=== PATIENT | male | born 1990 | race Caucasian/White ===

== ENCOUNTER 2020-07-09 09:54 | Emergency (ER) | payer MEDICAID, SELFPAY ==
--- NOTE | ~2020-07-09 | US_ITS ---
EXAMINATION: US SCROTUM CLINICAL INFORMATION: Right testicular pain. Question torsion. COMPARISON: 12/01/2019 TECHNIQUE: A sonogram of the scrotum was performed assessing bauer-scale appearance and color Doppler flow. Spectral Doppler analysis of the arterial and venous flow were performed in the testes bilaterally. FINDINGS: RIGHT: Right testicle measures 3.7 x 1.7 x 2.5 cm, volume 8.4 mL. No focal testicular parenchymal lesions are visualized. Spectral Doppler analysis of the arterial and venous flow is normal in the right testis. Stable small focus of calcification. Right epididymal head is normal in size. Epididymal tail is not visualized. No right hydrocele or varicocele is seen. Right epididymal Doppler flow is normal. Redemonstrated are epididymal head cysts. LEFT: Left testicle measures 3.0 x 2.1 x 2.3 cm, volume 7.2 mL. Redemonstrated is curvilinear hypoechogenicity in the superior and mid portion of the medial aspect of the testicular parenchyma. Subtle foci of internal hyperechogenicity. Similar findings are noted in the prior study. This is of uncertain etiology. Small calcific focus in the left testes. Spectral Doppler analysis of the arterial and venous flow is normal in the left testis. Left epididymal head is normal in size. Epididymal tail is not visualized. No left hydrocele or varicocele is seen. Left epididymal Doppler flow is normal. US/US scrotum doppler IMPRESSION: 1. Right testes and epididymis appears unremarkable by ultrasound, without sonographic findings suggest acute torsion. 2. Redemonstrated right epididymal head cysts, small focus of calcification in the right testicular parenchyma. 3. No sonographic findings to suggest acute torsion of the left testes. 4. Curvilinear hypoechogenicity, with internal hyperechoic foci in the left testicular parenchyma is redemonstrated. Similar findings are noted in the prior ultrasound of 12/01/2019. This is of uncertain etiology. This could reflect sequela of prior injury/laceration. Please clinically correlate. Further evaluation as clinically warranted. Consider follow-up ultrasound to ensure stability.
--- NOTE | ~2020-07-09 | CT_ITS ---
EXAMINATION: CT ABDOMEN AND PELVIS WITHOUT CONTRAST CLINICAL INFORMATION: Right flank pain. Question stone. COMPARISON: None TECHNIQUE: Multidetector volumetric imaging was performed from the superior aspect of the liver through the pubic symphysis. Sagittal and coronal reformatted images were obtained on the technologist's workstation. This CT examination was performed using dose optimization techniques as appropriate, variously including the following: *Automated exposure control *Adjustment of mA and/or kV according to patient size (this includes techniques or standardized protocols for targeted exams where dose is matched to indication/reason for exam; i.e. extremities or head) *Use of iterative reconstruction technique DLP: 5-0 mGy-cm FINDINGS: LUNG BASES: The visualized lung bases are unremarkable. LIVER, GALLBLADDER, AND BILIARY TREE: The liver is slightly low in attenuation suggestive of fatty infiltration. No focal hepatic lesion or biliary ductal dilatation is present. The gallbladder is unremarkable with no evidence of radiopaque gallstones, gallbladder wall thickening, or obvious pericholecystic inflammatory changes. PANCREAS: Unremarkable. SPLEEN: Unremarkable. ADRENAL GLANDS: Unremarkable. KIDNEYS AND URETERS: There is mild right hydronephrosis and ureteral dilatation from a 3 mm right UVJ stone. The kidneys are otherwise unremarkable. BLADDER: Not optimally distended. GASTROINTESTINAL TRACT: The small and large bowel are unremarkable. The appendix is unremarkable. ABDOMINAL WALL: No significant hernia is appreciated. LYMPH NODES: Normal. VASCULAR: Unremarkable. PELVIC VISCERA: Unremarkable. OSSEOUS STRUCTURES: Unremarkable. CT/CT abdomen pelvis wo con IMPRESSION: Mild right hydronephrosis and ureteral dilatation from a 3 mm right UVJ stone.
[2020-07-09 10:31] VITALS: BP 122/69; PULSE 78; RESP 19; TEMP 36.5; O2SAT 98; BMI 25.0
[2020-07-09] MEDS: Morphine Sulfate 4 MG/ML CARTRIDGE IVPUSH (10:42)
[2020-07-09] MEDS: ondansetron HCL 4 MG/2 ML VIAL IVPUSH (10:42)
[2020-07-09] MEDS: 0.9 % Sodium Chloride 1,000 ML 999 ML IVCONT (10:42)
[2020-07-09] MEDS: Ketorolac Tromethamine 30 MG/ML VIAL IVPUSH (10:42)
[2020-07-09 10:53] LABS: MANUAL DIFF FLAG NO
[2020-07-09 10:55] LABS: Basophils Absolute Auto 0.1 X10*3/uL (0.0-0.2); Basophils Percent Auto 0.5 % (0-2); Eosinophils Absolute Auto 0.1 X10*3/uL (0.0-0.4); Eosinophils Percent Auto 0.6 % (0-4); Hemoglobin 15.2 g/dl (14.0-18.0); Imm Gran Abs Auto 0.06 X10*3/uL (0.00-0.03); Imm Gran Pct Auto 0.6 % (0.0-0.4); Lymphocytes Absolute Auto 2.1 X10*3/uL (1.2-4.9); Lymphocytes Percent Auto 20.2 % (20-40); Mean Corpuscular HGB Conc 33.8 g/dl (31.0-36.0); Mean Corpuscular Hemoglobin 27.4 pg (27.0-33.0); Mean Corpuscular Volume 81.2 fL (80-98); Mean Platelet Volume 10.8 fL (9.4-12.4); Monocytes Absolute Auto 0.8 X10*3/uL (0.1-1.2); Monocytes Percent Auto 7.5 % (2-11); Neutrophils Absolute Auto 7.2 X10*3/uL (2.0-8.3); Neutrophils Percent Auto 70.6 % (45-73); Platelet Count 259 X10*3/uL (160-400); Red Blood Count 5.54 X10*6/uL (4.60-5.80); White Blood Count 10.2 X10*3/uL (4.8-10.8)
--- NOTE | 2020-07-09 11:20 | ED_ITS ---
HPI - Male Genitourinary General Chief complaint: General Medical Stated complaint: testicle pain Time Seen by Provider: 07/09/20 10:11 Source: patient Mode of arrival: ambulatory Limitations: no limitations History of Present Illness HPI Narrative: 29-year-old male with a past medical history of left testicular torsion at the age of 14, migraine headaches and ADHD presenting to the ED with complaints of right testicular pain radiating to his right suprapubic/right lower quadrant/right flank/right back since 04:00 this morning with associated nausea. Reports everything makes the pain worse. Reports nothing helps the pain improved. Reports he has taken multiple [id number] medication no symptomatic relief. Denies any fevers, vomiting, hematuria, dysuria, abnormal penile discharge or thoughts of STDs. MD Complaint: testicle pain Onset (ago): hour(s) (Since 04:00 prior to arrival) Duration: constant Location: right testicle Radiation: right inguinal region, right flank and abdomen (Right) Severity: severe Severity scale (1-10): >10 Quality: sharp Relieving factors: none Exacerbating factors: urination, palpation and movement Associated symptoms: Reports nausea/vomiting (Nausea no vomiting) Related Data Sexually active: Yes Previous Rx's Medication Instructions Recorded ibuprofen 800 mg PO Q8H PRN #14 tab 07/09/20 ondansetron HCl [Zofran] 4 mg PO Q8H PRN #14 tab 07/09/20 oxycodone 5 mg PO BID PRN #10 tab 07/09/20 prednisone 40 mg PO DAILY 5 Days #10 tab 07/09/20 tamsulosin [Flomax] 0.4 mg PO DAILY 7 Days #7 cap 07/09/20 Allergies Allergy/AdvReac Type Severity Reaction Status Date / Time No Known Allergies Allergy Unverified 02/01/20 16:02 [No Known Allergies*] Review of Systems Review of Systems: Constitutional : No Fever, No Chills, No Malaise ENT/Mouth: No ear pain, No sore throat, No Difficulty swallowing Cardiovascular : No Chest Pain, No SOB Respiratory : No Cough Gastrointestinal : + Nausea, + Abdominal pain, No Vomiting, No Diarrhea, No Hematochezia, No Melena Genitourinary : + Flank pain, No irregular bleeding, No Dysuria, No Urinary Frequency, No Hematuria,No Urinary Incontinence, No Urgency Musculoskeletal : No joint pain, No Myalgias, No Joint Swelling Skin : No Skin Lesions, No rash Neuro : No Weakness, No Numbness, No Paresthesias, No Loss of Consciousness, No Dizziness, No Headache Psych : No Social Issues, Heme/Lymph: No Lymphadenopathy Yes all other systems are reviewed and are negative [facility] Past Medical History Attestation statement: The following information was validated with the patient. Social History Social History Alcohol intake: unknown Smoking Status: Unknown if ever smoked Use of substances other than those prescribed or required for medical reasons: Unknown Advance Directives: No Advance Directives Information Provided: No Physical Exam Vital Signs: Vital Signs: Last Vital Signs Temp 97.7 F 07/09/20 10:31 Pulse 78 07/09/20 10:31 Resp 19 07/09/20 10:31 BP 122/69 07/09/20 10:31 Pulse Ox 98 07/09/20 10:31 Body Mass Index 25.0 vital signs have been reviewed as normal and appeared to be correct. Blood pressure normal. Heart rate normal. Respiration rate normal. Temperature normal. Oxygen saturation normal. Appearance: Alert is in severe pain screaming I am in pain I need something for pain otherwise no other acute distress. Oriented X3. Head: Normal external exam. Normocephalic. Atraumatic. Eyes: PERRLA. EOMI. Conjunctiva and sclera normal. Eyelids normal. ENT: Pharynx normal. Uvula midline. Moist mucous membranes. Neck: Normal inspection. Neck supple. FROM. No adenopathy. Thyroid Normal. No meningeal signs. No neck mass noted. CVS: Normal heart rate and rhythm. Heart sound normal. No murmurs noted. Pulses normal throughout. Respiratory: No respiratory distress. Painless inspiration. Breath sounds norm al. No wheezes/rales/rhonchi noted. Chest nontender. No accessory muscle usage noted or decreased air movement noted. Abdomen: Soft and moderate tenderness to palpation to right suprapubic/right low er quadrant/right flank with guarding. Bowel sounds normal in all 4 quadrants. No distention noted. No organomegaly noted. No visible injury noted. Negative Rovsing sign. Negative Aguilar sign. Negative obturator's sign. Negative psoas sign. : Chaperoned by JAKI Moon. Normal external exam. No ecchymosis/edema/erythema. No hernia noted. No inguinal lymphadenopathy noted. No lacerations/lesions/induration or tenderness noted. Normal penis. No Condyloma noted. No ecchymosis/erythe ma/swelling/edematous/mass/nodule/papules/pustules/vesicles. Not consistent with paraphimosis or phimosis. No ulcerations or lesions noted. The meatus is normal. No meatal discharge noted. No blood at the meatus. The scrotum is normal. Cremasteric reflex absent. No ecchymosis/edematous/erythema noted. Testicles are both descended bilaterally. No hydrocele noted. No inguinal hernia noted. No scrotal mass/swelling noted. No ulcerations or varicocele. Testicles appear normal. They lie normal. Epididymides normal. No blue dot sign. Testicles are not enlarged. No epididymal induration/mass/tenderness. No testicular mass noted. Patient has moderate right testicular pain otherwise no swelling to bilateral testicles. No high-riding testicle noted. No testicular atrophy noted. Back: + Right CVA tenderness. No left CVA tenderness noted. Full range of motion noted. Skin: Skin warm and dry. Normal skin color. Normal skin turgor. No rashes/lesions/lacerations noted. Extremities: Extremities exhibit normal range of motion. Extremities nontender. Neuro: Oriented X 3. No motor deficit. No sensory deficit. Reflexes normal. Course Course Course Narrative: 29-year-old male with a past medical history of left testicular torsion at the age of 14, migraine headaches and ADHD presenting to the ED with complaints of right testicular pain radiating to his right suprapub ic/right lower quadrant/right flank/right back since 04:00 this morning with associated nausea. - labs obtained and all within normal limits. UA revealed some hematuria otherwise no signs of UTI. - CT scan of abdomen and pelvis revealed mild right hydronephrosis and ureteral dilation from a 3 mm right UVJ stone. Otherwise no other acute processes. - scrotal ultrasound revealed right epididymal head cyst and chronic other changes no acute processes noted. - patient is resting well after the IV medications. Will DC home with p.o. Zofran, Motrin and oxycodone and re-evaluate. MDM - Male Genitourinary Medical Records Attestation: I reviewed the patient's medical records. Lab Data Attestation: I reviewed the patient's lab results. Result diagrams: 07/09/20 10:45 07/09/20 10:45 Labs: Lab Results 07/09/20 07/09/20 07/09/20 Range/Units 10:45 10:45 11:33 WBC 10.2 (4.8-10.8) X10*3/uL RBC 5.54 (4.60-5.80) X10*6/uL Hgb 15.2 (14.0-18.0) g/dl Hct 45.0 (42-52) % MCV 81.2 (80-98) fL MCH 27.4 (27.0-33.0) pg MCHC 33.8 (31.0-36.0) g/dl RDW 13.0 (11.0-16.0) % Plt Count 259 (160-400) X10*3/uL MPV 10.8 (9.4-12.4) fL Immature Gran % (Auto) 0.6 H (0.0-0.4) % Neut % (Auto) 70.6 (45-73) % Lymph % (Auto) 20.2 (20-40) % Miller % (Auto) 7.5 (2-11) % Eos % (Auto) 0.6 (0-4) % Baso % (Auto) 0.5 (0-2) % Lymph # (Auto) 2.1 (1.2-4.9) X10*3/uL Miller # (Auto) 0.8 (0.1-1.2) X10*3/uL Eos # (Auto) 0.1 (0.0-0.4) X10*3/uL Baso # (Auto) 0.1 (0.0-0.2) X10*3/uL Abs Immat Gran (auto) 0.06 H (0.00-0.03) X10*3/uL Absolute Neuts (auto) 7.2 (2.0-8.3) X10*3/uL Absolute Nucleated RBC 0.000 (0.0-0.012) X10*3/uL Nucleated RBC % (auto) 0.0 (0.0-0.2) /100WBC Sodium 141 (135-145) mmol/L Potassium 3.8 (3.3-5.1) mmol/L Chloride 105 (96-108) mmol/L Carbon Dioxide 21 L (22-29) mmol/L Anion Gap 19 (12-20) BUN 14 (9-16) mg/dL Creatinine 1.00 (0.5-1.4) mg/dL Estim Creat Clear Calc 94.8 Estimated GFR > 60 Random Glucose 176 H (60-115) mg/dL Calcium 9.6 (8.4-10.2) mg/dL Magnesium 1.8 (1.6-2.6) mg/dL Total Bilirubin 0.6 (0.0-1.0) mg/dL Direct Bilirubin 0.2 (0.0-0.5) mg/dL AST 22 (5-37) U/L ALT 35 (0-40) U/L Alkaline Phosphatase 69 (39-117) U/L Total Protein 7.5 (6.5-8.0) g/dL Albumin 4.4 (3.5-5.0) g/dL Urine Color YELLOW Urine Appearance CLOUDY Urine pH 6.0 (5.0-8.0) Ur Specific [place] >= 1.030 H (1.005-1.025) Urine Protein 1+ H (NEG-TRACE) MG/DL Urine Glucose (UA) NEG (NEG) MG/DL Urine Ketones NEG (NEG) MG/DL Urine Blood 3+ H (NEG) Urine Nitrite NEG (NEG) Ur Leukocyte Esterase NEG (NEG) Urine RBC TNTC H (0) /HPF Urine WBC 0-2 (0-4) /HPF Ur Squamous Epith Cells TRACE /LPF Urine Bacteria NONE /LPF Urine Mucus TRACE /LPF Imaging Data CT scan of abdomen and pelvis without contrast: Attestation: I personally reviewed and interpreted this imaging study as follows: Radiologist's impression: FINDINGS: LUNG BASES: The visualized lung bases are unremarkable. LIVER, GALLBLADDER, AND BILIARY TREE: The liver is slightly low in attenuation suggestive of fatty infiltration. No focal hepatic lesion or biliary ductal dilatation is present. The gallbladder is unremarkable with no evidence of radiopaque gallstones, gallbladder wall thickening, or obvious pericholecystic inflammatory changes. PANCREAS: Unremarkable. SPLEEN: Unremarkable. ADRENAL GLANDS: Unremarkable. KIDNEYS AND URETERS: There is mild right hydronephrosis and ureteral dilatation from a 3 mm right UVJ stone. The kidneys are otherwise unremarkable. BLADDER: Not optimally distended. GASTROINTESTINAL TRACT: The small and large bowel are unremarkable. The appendix is unremarkable. ABDOMINAL WALL: No significant hernia is appreciated. LYMPH NODES: Normal. VASCULAR: Unremarkable. PELVIC VISCERA: Unremarkable. OSSEOUS STRUCTURES: Unremarkable. CT/CT abdomen pelvis wo con IMPRESSION: Mild right hydronephrosis and ureteral dilatation from a 3 mm right UVJ stone. Scrotal ultrasound: Attestation: I personally reviewed and interpreted this imaging study as follows: Radiologist's impression: FINDINGS: RIGHT: Right testicle measures 3.7 x 1.7 x 2.5 cm, volume 8.4 mL. No focal testicular parenchymal lesions are visualized. Spectral Doppler analysis of the arterial and venous flow is normal in the right testis. Stable small focus of calcification. Right epididymal head is normal in size. Epididymal tail is not visualized. No right hydrocele or varicocele is seen. Right epididymal Doppler flow is normal. Redemonstrated are epididymal head cysts. LEFT: Left testicle measures 3.0 x 2.1 x 2.3 cm, volume 7.2 mL. Redemonstrated is curvilinear hypoechogenicity in the superior and mid portion of the medial aspect of the testicular parenchyma. Subtle foci of internal hyperechogenicity. Similar findings are noted in the prior study. This is of uncertain etiology. Small calcific focus in the left testes. Spectral Doppler analysis of the arterial and venous flow is normal in the left testis. Left epididymal head is normal in size. Epididymal tail is not visualized. No left hydrocele or varicocele is seen. Left epididymal Doppler flow is normal. US/US scrotum IMPRESSION: 1. Right testes and epididymis appears unremarkable by ultrasound, without sonographic findings suggest acute torsion. 2. Redemonstrated right epididymal head cysts, small focus of calcification in the right testicular parenchyma. 3. No sonographic findings to suggest acute torsion of the left testes. 4. Curvilinear hypoechogenicity, with internal hyperechoic foci in the left testicular parenchyma is redemonstrated. Similar findings are noted in the prior ultrasound of 12/01/2019. This is of uncertain etiology. This could reflect sequela of prior injury/laceration. Please clinically correlate. Further evaluation as clinically warranted. Consider follow-up ultrasound to ensure stability. Discharge Plan Discharge Clinical Impression: Right nephrolithiasis Patient Disposition: Home, Self-Care Instructions: Kidney Stones (ED) Prescriptions: New ibuprofen 800 mg tablet 800 mg PO Q8H PRN (Reason: pain) Qty: 14 RF: 0 ondansetron HCl [Zofran] 4 mg tablet 4 mg PO Q8H PRN (Reason: nausea and vomiting) Qty: 14 RF: 0 oxycodone 5 mg tablet 5 mg PO BID PRN (Reason: pain) Qty: 10 RF: 0 tamsulosin [Flomax] 0.4 mg capsule 0.4 mg PO DAILY 7 Days Qty: 7 RF: 0 prednisone 20 mg tablet 40 mg PO DAILY 5 Days Qty: 10 RF: 0 Referrals: Uriel Leal MD [Physician] - 2 days Jonas Nuno III, MD [Physician] - 2 days Stand Alone Forms: Work/School Release Print Language: Bhutanese
[2020-07-09 11:24] LABS: Alanine Aminotransferase 35 U/L (0-40); Albumin Level 4.4 g/dL (3.5-5.0); Alkaline Phosphatase 69 U/L (39-117); Anion Gap 19 (12-20); Aspartate Amino Transferase 22 U/L (5-37); Bilirubin Direct 0.2 mg/dL (0.0-0.5); Bilirubin Total 0.6 mg/dL (0.0-1.0); Blood Urea Nitrogen 14 mg/dL (9-16); Calcium 9.6 mg/dL (8.4-10.2); Carbon Dioxide 21 mmol/L (22-29); Chloride 105 mmol/L (96-108); Creatinine Clr Calc Pharmacy 94.8; Estimated Glomerular Filt Rate > 60; Glucose Random 176 mg/dL (60-115); Magnesium 1.8 mg/dL (1.6-2.6); Potassium 3.8 mmol/L (3.3-5.1); Sodium 141 mmol/L (135-145); Total Protein 7.5 g/dL (6.5-8.0)
[2020-07-09 11:46] LABS: Glucose Urine UA NEG (NEG); Leukocyte Esterase Urine NEG (NEG); Nitrite Urine NEG (NEG); Specific Gravity - Urine >= 1.030 (1.005-1.025); Urine Blood 3+ (NEG); Urine Ketones NEG (NEG); Urine Protein 1+ MG/DL (NEG-TRACE)
[2020-07-09 11:51] LABS: Appearance Urine CLOUDY; Color Urine YELLOW
[2020-07-09 11:58] LABS: Mucus Urine TRACE /LPF; RBC Urine TNTC /HPF (0); Squamous Epithelial Cell Urine TRACE /LPF; WBC Urine 0-2 /HPF (0-4)
[2020-07-09 13:11] VITALS: BP 110/61; PULSE 69; RESP 16; TEMP 36.7; O2SAT 99
== END 2020-07-09 13:13 | disposition home or self-care (01) ==
PROVIDERS: Physician Assistant Medical; Emergency Provider Emergency Medicine
DX: N50.812 Left testicular pain (principal); N13.2 Hydronephrosis with renal and ureteral calculous obstruction
CPT/HCPCS: 36415; 74176; 76870; 80048; 80076; 81001; 83735; 85025; 93975; 96361; 96374; 96375; 99284; J1885; J2270; J2405